=== PATIENT | male | born 1955 | race Two or more races ===

== ENCOUNTER 2019-10-19 07:05 | Day surgery (SDC) | payer OTHER ==
[~2019-10-19 07:05] MED LIST: TESTOSTERO100 MG/1 M IM
[2019-10-19] MEDS ORDERED: PERCOCET 5-3251 EACH PO (11:13)
== END 2019-10-19 13:15 | disposition home or self-care (01) ==
LOC: CIR.AMB 07:05
DX: D35.1 Benign neoplasm of parathyroid gland (principal)

== ENCOUNTER 2022-10-02 21:51 | Emergency (ER) | payer OTHER ==
[~2022-10-02] VITALS: Ht 170.2 cm; Wt 80.3 kg
[~2022-10-02 21:51] MED LIST changes: +PERCOCET 5-3251 EACH PO
[2022-10-03] MEDS ORDERED: ZYNCOF 20-400120 ML PO (00:40)
== END 2022-10-03 00:56 ==
LOC: ER 21:51
DX: U07.1 COVID-19 (principal); B34.9 Viral infection, unspecified; Z86.16 Personal history of COVID-19; Z09 Encounter for follow-up examination after completed treatment for conditions other than malignant neoplasm